=== PATIENT | female | born 1945 | race Caucasian/White ===

== ENCOUNTER → 2016-05-28 | Outpatient (CLI) | payer MEDICARE, OTHER | END | disposition home or self-care (01) | LOC: GMA 11:46 | PROVIDERS: ATTEND Nurse Practitioner Acute Care | DX: R30.0 Dysuria (principal) ==

== ENCOUNTER → 2016-06-10 | Outpatient (CLI) | payer MEDICARE, OTHER | END | disposition home or self-care (01) | LOC: GMA 11:35 | PROVIDERS: ATTEND Nurse Practitioner Acute Care | DX: R53.82 Chronic fatigue, unspecified (principal) ==

== ENCOUNTER → 2017-07-18 | Outpatient (CLI) | payer MEDICARE, OTHER ==
--- NOTE | 2017-07-19 15:30 | US ---
EXAM DESCRIPTION: Renal CLINICAL HISTORY: STAGE 4 CKD COMPARISON: None. FINDINGS: There is no evidence of hydronephrosis or renal stone or focal lesion of either kidney. The right kidney measures 73 x 34 x 35 mm and the left 110 x 50 x 55 mm. IMPRESSION: Renal size discrepancy. Otherwise unremarkable. Electronically signed by: Goran Jimenez 07/19/2017 3:29 PM CDT
== END ==
LOC: LAB.O 09:29
PROVIDERS: ATTEND Internal Medicine Nephrology
DX: N18.4 Chronic kidney disease, stage 4 (severe) (principal)

== ENCOUNTER → 2017-10-17 | Outpatient (CLI) | payer OTHER ==
--- NOTE | 2017-10-17 22:10 | CT ---
EXAM DESCRIPTION: Abdomen w/o Contrast: Computed Tomography. CLINICAL HISTORY: VENTRAL HERNIA INCISIONAL COMPARISON: None. TECHNIQUE: Spiral-axial scans at 5.0 mm intervals through the abdomen, after oral contrast. No IV contrast. Oral contrast not given due to lack of recent laboratory results for renal function tests. Coronal and sagittal 2.0 mm reconstructions. No Delayed scans. Total Exam DLP: 1145.27 mGy-cm. This exam was performed according to our departmental CT dose-optimization program which includes automated exposure control, adjustment of the mA and/or kV according to patient size and/or use of iterative reconstruction technique; to reduce radiation dose to as low as reasonably achievable (ALARA). FINDINGS: Abdominal Wall/Back Soft Tissues: Pinning of the midline abdominal ventral raphe of the of the upper pelvis to the level of the lower liver and left kidney. At the L2 level, the neck of the hernia in the raphe measures 3.6 cm transverse and 2.7 cm craniocaudal. The hernia contains transverse colon with contrast but no obstruction. More superiorly, only mesentery is seen in the hernia sac inferiorly, another hernia is noted to the right of the umbilicus but only contains mesentery with ascending colon, progressing against the hernia but not extending through the wall. Lung bases and pleura: Dependent atelectasis in the posterior right base with minimal pleural thickening. Liver, Stomach, Spleen, Adrenal Glands: Long axis right lobe liver 20.7 cm. Heterogeneous low-density of the liver. Calcifications splenic artery spleen unremarkable. Adrenal glands negative. Pancreas, Gallbladder, Ducts: Gallbladder not visualized. Common bile duct dilated. Minimal fatty replacement of the pancreas. Kidneys: 3 mm radiodensity in the inferior collecting system of the left kidney. 1 cm fluid density cyst medial cortex. Multiple radiodense stones in the superior right collecting system ranging in size from 3 mm to 4.5 mm. Atrophy of the right renal cortex no hydronephrosis bilaterally. Mesentery: Involved in the hernia as previously described. No free fluid or free air. Aorta: Minimal atherosclerotic calcification in a woman of the ostia of the major branch vessels but normal caliber. Small Bowel: Normal caliber and not involved in the hernia. Minimal oral contrast in the distal ileum. Terminal Ileum/Cecum: Normal caliber and containing oral contrast Colon: Involvement in the hernia as previously described. Included segments distal to the hernia showing no evidence of obstruction. Spine: Bilateral posterior transpedicular fusion L2-S1. Cross links at L2-3 and L5-S1. Interbody fusion devices at L4-5 and L5-S1. Bilateral L4-5 and L5-S1 foraminal narrowing. No vertebral body compression at any level. IMPRESSION: 1. Hernia midline ventral abdominal raphe at the L2 level containing segments of the transverse colon as described. No obstruction or strangulation. Second hernia more inferiorly and smaller to the right of the umbilicus containing mesentery but no bowel. 2. Hepatomegaly with possible steatosis but no ascites. Gallbladder not visualized. Common bile duct dilated. Fatty infiltration of the pancreas. 3. 3 radiodense stones in the upper collecting system of the right kidney as described. Atrophy of the right renal cortex. No hydronephrosis. Cyst in the left kidney with no radiodense stones. 4. Extensive posterior fusion L2-S1 no obvious bony or hardware complications.. Electronically signed by: Goran Pugh MD 10/17/2017 10:09 PM CDT
== END ==
LOC: CT 10:54
PROVIDERS: ATTEND Family Medicine
DX: K43.2 Incisional hernia without obstruction or gangrene (principal); R10.84 Generalized abdominal pain; R16.0 Hepatomegaly, not elsewhere classified; N20.0 Calculus of kidney; N28.1 Cyst of kidney, acquired; Z98.1 Arthrodesis status

== ENCOUNTER → 2018-07-22 | Outpatient (CLI) | payer OTHER | LOC: GMAJ 10:49 | PROVIDERS: ATTEND Family Medicine | DX: D64.9 Anemia, unspecified (principal) ==

== ENCOUNTER → 2018-09-21 | Outpatient (CLI) | payer OTHER ==
--- NOTE | 2018-09-23 16:26 | MAM ---
EXAM DESCRIPTION: 3D Screening BILATERAL : Digital Mammography. CLINICAL HISTORY: 73 years Female ANNUAL SCREENING . No complaints. No personal or family history of breast cancer. Childbirth. Postmenopausal. HRT more than 5 years ago. Lifetime risk of developing breast cancer (Tyrer-Cuzick model)(%): 3.0. COMPARISON: 2-D digital screening bilateral mammography 07/15/2011. TECHNIQUE: Bilateral CC and MLO projection full-field images, digital tomosynthesis mammographic technique. Bilateral digital 2-D full-field MLO images. CAD not available for tomosynthesis or 2-D images. FINDINGS: The breast parenchymal density pattern is: Almost entirely fatty. No skin thickening or nipple retraction. No new focal, stellate mass or density, focal asymmetry , and no suspicious microcalcifications bilaterally. Stable mammograms compared to prior study. Taking into account, differences in mammographic technique. IMPRESSION: BI-RADS CATEGORY: 1 - NEGATIVE FOLLOW UP: Routine digital bilateral screening, one year interval from September 2018. Written communication explaining the findings and follow-up, will be mailed to the patient and referring health care provider. According to the [employer], yearly mammograms are recommended starting at age 40 and continuing as long as a woman is in good health. Any breast change noted on a breast self-exam should be reported promptly to the patient's healthcare provider. Breast MRI is recommended for women with an approximately 20-25% or greater lifetime risk of breast cancer, including women with a strong family history of breast or ovarian cancer and women who have been treated for Hodgkin's disease. A negative mammographic report should not delay tissue diagnosis in patients with significant clinical history or physical findings. Extremely dense breast tissue limits the sensitivity of digital mammography. Electronically signed by: Goran Pugh MD 09/23/2018 4:24 PM CDT
== END ==
LOC: MAMMO 09:46
PROVIDERS: ATTEND Surgery
DX: Z12.31 Encounter for screening mammogram for malignant neoplasm of breast (principal)

== ENCOUNTER → 2018-09-30 | Outpatient (CLI) | payer OTHER ==
--- NOTE | 2018-10-01 11:05 | CT ---
EXAM DESCRIPTION: Abdoment/Pelvis w/o Contrast: Computed Tomography. CLINICAL HISTORY: 73 years Female HERNIA COMPARISON: CT scan of the abdomen with contrast 10/17/2017. TECHNIQUE: Spiral-axial scans 2.5 x 2.5 mm intervals through the abdomen and pelvis with water soluble oral contrast only; no IV contrast. Coronal and sagittal 2.0 x 2.0 mm reconstructions. Total Exam DLP: 1496.18mGy-cm. This exam was performed according to our departmental CT dose-optimization program which includes automated exposure control, adjustment of the mA and/or kV according to patient size and/or use of iterative reconstruction technique; to reduce radiation dose to as low as reasonably achievable (ALARA). FINDINGS: Abdominal Wall/Back Soft Tissues: Midline abdominal raphe extremely thin at and above the umbilicus approximately 9 cm in length. A dyllan defect is visualized measuring 3.8 cm in width and approximately 3.8 cm craniocaudal through which a segment of colon is protruding into the right paramedian adipose layer, above the umbilicus. Similar amount of colon as was herniated on the prior study. Another dyllan defect slightly smaller at the level of the umbilicus with transverse colon Slightly protruding into the defect. Not seen on the prior study. No large hernial sac except for that containing bowel. Minimal fatty stranding. No fluid collection. Bowel does not appear incarcerated or strangulated. No obstruction. Bilateral small fatty inguinal hernias not containing bowel. Lung bases and pleura: Minimal dependent atelectasis right base. Coronary artery stent and calcifications. Liver, stomach, spleen, and adrenal glands: Splenic artery calcifications. Otherwise negative. Pancreas, Gallbladder, and Ducts: Gallbladder not well seen or contracted. Common bile duct dilated. Small pancreas otherwise negative. Kidneys and Ureters: 2 mm radiodense stone in the collecting system of the lower right kidney which shows cortical thinning and atrophy. No hydronephrosis or perirenal stranding. 2.5 mm radiodense stone inferior collecting system left kidney with no hydronephrosis possible juxta cortical cyst medial upper pole. Juxta cortical cyst posterior left lower pole. No perirenal stranding. Bilateral ureters are negative. Mesentery: No free fluid or air. No focal abnormal fatty stranding or fascial thickening. Aorta: Normal caliber of the outer wall with atherosclerotic calcification of the ostia of the major branch vessels. Small Bowel: Decompressed. No obstruction. No herniation. Terminal Ileum/Cecum: TI normal caliber. Cecum negative. Appendix not seen. Normal density of surrounding fat. Colon: Caliber unremarkable. Proximal transverse colon has herniated is otherwise unremarkable. Decompression of the sigmoid colon. Pelvic Organs: Uterus and ovaries not seen. No free fluid. Spine and Bony Pelvis: Posterior fusion construct L2-S1 with unilateral connecting rods. Interbody fusion L4-5 and L5-S1. 2 cross-links. Minimal foraminal narrowing bilaterally L4-L5. No dyllan bony or hardware complications. Minimal dextroscoliosis thoracolumbar spine. Bone harvesting site right iliac bone. Arthrosis bilateral hip joints and bony changes also on the femoral heads. IMPRESSION: 1. Midline and right paracentral abdominal wall hernia with 2 Dyllan defects and intermittent midline raphe is very thin. Transverse colon Protruding into the lower defect at the level of umbilicus and herniating at the upper defect.. Amount of herniated: Stable since the prior study with more superior protrusion new since the prior study. No bowel obstruction or complications. 2. Bilateral small renal stones with right renal atrophy and bilateral cysts. Ureters negative. Stable since the prior study. Electronically signed by: Goran Pugh MD 10/01/2018 11:03 AM CDT
== END ==
LOC: CT 10:20
PROVIDERS: ATTEND Surgery
DX: K45.8 Other specified abdominal hernia without obstruction or gangrene (principal); N20.0 Calculus of kidney; N28.1 Cyst of kidney, acquired; N26.1 Atrophy of kidney (terminal)

== ENCOUNTER 2019-08-03 13:58 | Emergency (ER) | payer MEDICARE, OTHER ==
--- NOTE | 2019-08-03 14:45 | RAD ---
EXAM DESCRIPTION: Shoulder,Left 2 or More Views CLINICAL HISTORY: fall with pain COMPARISON: None Available. TECHNIQUE: Two views of the left shoulder. FINDINGS/IMPRESSION: Images of the left shoulder demonstrate a minimal/nondisplaced acute fracture of the surgical neck of the humerus with partial fracture extension into the greater tuberosity. No glenohumeral or acromioclavicular joint dislocation. The bone mineralization is preserved. Electronically signed by: Zeferino Richardson DO 08/03/2019 2:44 PM CDT
--- NOTE | 2019-08-03 15:36 | ED.PDOC ---
History of Present Illness - General Chief Complaint: General Stated Complaint: Left shoulder pain Time Seen by Provider: 08/03/19 14:16 Source: patient, RN notes reviewed, Vital Signs reviewed Exam Limitations: no limitations - History of Present Illness Initial Comments: Patient is a 74-year-old obese white female who presents with complaints of left shoulder pain. Patient fell 3 days ago at home and has had worsening pain since that time. The pain is throbbing in nature. Worse with movement or palpation. Better with immobilization. Pain is nonradiating. Moderate intensity. Timing/Duration: other - 3 days Severity: moderate Improving Factors: immobilization Worsening Factors: movement Associated Symptoms: denies symptoms Allergies/Adverse Reactions: Allergies NO KNOWN ALLERGY Allergy (Verified 04/18/13 11:06) Review of Systems - Review of Systems Constitutional: States: no symptoms reported, see HPI EENTM: States: no symptoms reported Respiratory: States: no symptoms reported Cardiology: States: no symptoms reported Gastrointestinal/Abdominal: States: no symptoms reported Genitourinary: States: no symptoms reported Musculoskeletal: States: joint pain - Left shoulder, joint swelling Skin: States: no symptoms reported Neurological: States: no symptoms reported Endocrine: States: no symptoms reported Hematologic/Lymphatic: States: no symptoms reported All other Systems: Reviewed and Negative Past Medical History (General) - Patient Medical History Hx Seizures: No Hx Stroke: No Hx Dementia: No Hx Asthma: No Hx of COPD: No Hx Cardiac Disorders: No Hx Congestive Heart Failure: No Hx Pacemaker: No Hx Hypertension: Yes Hx Thyroid Disease: No Hx Diabetes: No Hx Gastroesophageal Reflux: No Hx Renal Disease: No Hx Cancer: No Hx of HIV: No Hx Hepatitis C: No Hx MRSA: No Surgical History: cholecystectomy, Hysterectomy - Vaccination History Hx Influenza Vaccination: No Hx Pneumococcal Vaccination: Yes - Social History Hx Tobacco Use: No Hx Alcohol Use: No Family Medical History - Family History Mother Family History: Unknown Living Status: Unknown Physical Exam - Physical Exam General Appearance: Alert, Anxious, Obvious distress, Well Developed, Well Groomed, Well Hydrated, Well Nourished Eye Exam: bilateral normal Ears, Nose, Throat: hearing grossly normal, normal pharynx Respiratory: chest non-tender, lungs clear, normal breath sounds, no respiratory distress Cardiovascular/Chest: normal peripheral pulses, regular rate, rhythm, no edema Peripheral Pulses: radial,right: 2+, radial,left: 2+ Gastrointestinal/Abdominal: normal bowel sounds, non tender, soft, other - Morbidly obese Back Exam: normal inspection, no CVA tenderness, no vertebral tenderness Extremity: other - Patient with tenderness to palpation of the left shoulder. She is neurovascularly intact distally. Neurologic: arboriculturist II-XII nml as tested, no motor/sensory deficits, alert, normal mood/affect, oriented x 3 Skin Exam: normal color, warm/dry Lymphatic: no adenopathy Progress - Progress Progress: Differential diagnosis: Shoulder dislocation, humerus fracture, shoulder contusion, clavicle fracture among others. 08/03/19 15:41 Discussed with the patient her diagnosis of a humeral fracture and the need to place the arm in a sling and follow-up with orthopedic surgery. Patient voices understanding and agreement with the plan of care. Plan on discharge home at this time. Tolu Bravo M.D. #[id number] - Results/Orders Results/Orders: EXAM DESCRIPTION: Shoulder,Left 2 or More Views CLINICAL HISTORY: fall with pain COMPARISON: None Available. TECHNIQUE: Two views of the left shoulder. FINDINGS/IMPRESSION: Images of the left shoulder demonstrate a minimal/nondisplaced acute fracture of the surgical neck of the humerus with partial fracture extension into the greater tuberosity. No glenohumeral or acromioclavicular joint dislocation. The bone mineralization is preserved. Electronically signed by: Zeferino Richardson DO 08/03/2019 2:44 PM CDT - [id number] Departure - Departure Clinical Impression: Fall Qualifiers: Encounter type: initial encounter Qualified Code(s): W19.XXXA - Unspecified fall, initial encounter Humerus surgical neck fracture Qualifiers: Encounter type: initial encounter Fracture morphology: unspecified fracture morphology Fracture alignment: nondisplaced Laterality: left Time of Disposition: 15:46 Disposition: Discharge to Home or Self Care Condition: Good Departure Forms: ED Discharge - Pt. Copy, Patient Portal Self Enrollment Instructions: Shoulder Fracture (DC) Diet: resume usual diet Activity: increase activity as tolerated, no pushing/pulling with affected limb Referrals: Siddhartha Potter MD [Primary Care Provider] - 1-2 Weeks Peter Cruz MD [Active Staff] - 1-2 Days
[2019-08-03 16:26] VITALS: BP 144/79; TEMP 97.4; O2SAT 97
== END 2019-08-03 16:04 | disposition home or self-care (01) ==
LOC: ER 13:58
DX: S42.215A Unspecified nondisplaced fracture of surgical neck of left humerus, initial encounter for closed fracture (principal); I10 Essential (primary) hypertension; E66.01 Morbid (severe) obesity due to excess calories; W19.XXXA Unspecified fall, initial encounter; Y92.009 Unspecified place in unspecified non-institutional (private) residence as the place of occurrence of the external cause

== ENCOUNTER → 2019-08-06 | Outpatient (CLI) | payer MEDICARE ==
--- NOTE | 2019-08-06 10:02 | RAD ---
EXAM DESCRIPTION: Shoulder,Left 2 or More Views CLINICAL HISTORY: 74 years Female, PAIN IN LEFT SHOULDER COMPARISON: 08/03/2019 Findings: Two view(s)/radiograph(s) Similar alignment of the previously described minimally impacted fracture of the proximal left humerus, undermining the greater tuberosity. No new fracture. No dislocation. Mild acromioclavicular osteoarthritis. The chest is clear. IMPRESSION: Similar alignment of the previously described proximal left humerus fracture. Electronically signed by: Huang Madrid MD 08/06/2019 10:00 AM CDT
== END ==
LOC: RAD 08:35
PROVIDERS: ATTEND Orthopaedic Surgery
DX: S42.202D Unspecified fracture of upper end of left humerus, subsequent encounter for fracture with routine healing (principal)

== ENCOUNTER → 2019-11-15 | Outpatient (CLI) | payer MEDICARE | END | disposition home or self-care (01) | LOC: GMAJ 15:41 | PROVIDERS: ATTEND Family Medicine | DX: I10 Essential (primary) hypertension (principal) ==

== ENCOUNTER → 2019-12-06 | Outpatient (CLI) | payer MEDICARE | LOC: GMAJ 16:51 | PROVIDERS: ATTEND Family Medicine | DX: N30.00 Acute cystitis without hematuria (principal); B96.81 Helicobacter pylori [H. pylori] as the cause of diseases classified elsewhere ==